=== PATIENT | female | born 1950 | race Two or more races ===

== ENCOUNTER → 2016-08-06 | Outpatient (CLI) | payer OTHER ==
[~2016-08-06] MED LIST: GADOBUTROL 10 ML VIAL IVP ONE
== END ==
LOC: FIMAGING 13:01
PROVIDERS: ATTEND Physician Assistant Surgical
DX: D32.1 Benign neoplasm of spinal meninges (principal); Z09 Encounter for follow-up examination after completed treatment for conditions other than malignant neoplasm; M51.84 Other intervertebral disc disorders, thoracic region
CPT/HCPCS: A9585

== ENCOUNTER → 2017-08-04 | Outpatient (CLI) | payer OTHER | LOC: FIMAGING 06:35 | PROVIDERS: ATTEND Physician Assistant Surgical | DX: D32.1 Benign neoplasm of spinal meninges (principal) | CPT/HCPCS: A9585 ==